=== PATIENT | female | born 1995 | race Hispanic/Latino ===

== ENCOUNTER 2019-02-19 02:10 | Inpatient (IN) | payer MEDICAID, SELFPAY ==
[2019-02-19 02:48] VITALS: BMI 24.5
[2019-02-19] MEDS: Lactated Ringers 1,000 ML 50 ML IV (02:50)
[2019-02-19 03:11] LABS: Absolute Lymphocyte Count 1.85 X10^3/ul (0.83-4.51); Absolute Neutrophil Count 5.8 X10^3/uL (2.0-7.7); Basophil# 0.02 X10^3/uL; Basophil% 0.2 % (0-1); Eosinophil# 0.08 X10^3/uL; Eosinophils% 0.9 % (0-5); Hematocrit 37.6 % (37-47); Hemoglobin 12.5 g/dl (12.0-15.0); Lymphocyte # 1.85 X10^3/ul (4.0); Lymphocyte % 21.7 % (19-41); Mean Corp Hgb Conc 33.2 g/gl (32-36); Mean Corpuscular Hgb 29.9 pg (27.0-32.0); Mean Platelet Vol. 11.7 fl (6.2-12.0); Monocyte# 0.69 X10^3/uL; Monocyte% 8.1 % (0-10); Neutrophil # 5.81 X10^3/uL (2.7-7.7); Neutrophil % 68.3 % (47-70); Platelet Count 298 K/mm3 (150-450); RBC Distribution Width CV 14.4 % (11.6-14.6); Red Blood Count 4.18 M/mm3 (4.2-5.4); White Blood Count 8.5 K/mm3 (4.4-11.0)
[2019-02-19 03:17] LABS: POSITIVE COUNT NO; POSITIVE DIFFERENTIAL NO; POSITIVE MORPHOLOGY NO
--- NOTE | 2019-02-19 04:18 | PCM.HP.OB ---
- Problem List (1) Status: Acute (2) Asthma Status: Acute (3) Language barrier Status: Acute (4) Late care Status: Acute (5) care insufficient Status: Acute History Date of Admission: 02/19/19 Final MICKY: 02/21/19 Final MICKY Source: US <20 weeks Gestational age: 39 Weeks and 5 Days History of this : This is a 23 year-old, G [2], P [1001], at 39 weeks gestational age. Presented to L&D with complaint of contractions. NO vaginal bleeding or leakage of fluid. Allergies No Known Allergies Allergy (Verified 02/19/19 02:53) Home Medications: Home Medications Ferrous Sulfate 325 mg PO DAILY 02/19/19 Smoking Status: Never smoker Alcohol: None Heart Tracin, moderate variability, accels, variable decel, Category 2 TOCO: every 2 minutes, strong History Past Pregnancies: Past Pregnancies Delivery Date Name GA/Weeks Outcome Route Weight Infant Gender Labor Length Anesthesia Delivery Location Provider FOB Labs: GBS negative 1hr GCT 124 nml O positive RPR negative Rubella Immune HBsAG negative HIV negative Zika negative GC/CT negative Urine tox screen negative Expected Delivery Method: Spontaneous Vaginal Review of Systems Constitutional: Denies: Chills, Fever, Weight Change HEENT: Denies: Head Aches, Sinus Congestion, Sinus Drainage Cardiovascular: Denies: Chest Pain, Palpitations Respiratory: Denies: Cough, Shortness of breath at rest, Sputum production Gastrointestinal: Denies: Nausea, Vomiting Genitourinary: Denies: Dysuria Neurological: Denies: Numbness, Tingling, Focal weakness Psychiatric: Denies: Anxiety, Depression, Homicidal Ideations, Suicidal Ideations Physical Exam General: Alert, Oriented x3, No apparent distress HEENT: Atraumatic, Normocephalic. Negative for: Thyromegaly Cardiovascular: Regular rate, Regular Rhythm, No murmurs Lungs: Clear to auscultation, Normal air movement, No rhonchi, No wheeze Abdomen: Bowel Sounds Present, Gravid Extremities:: No edema Neurological: Deep Tendon Reflexes 2+/4 and Symmetrical DEPARTMENT CLERK: Normal external genitalia Estimated gestational size: Appropriate for gestational size Presentation: Cephalic Cervix Dilation (cm): 7 - vertex. AROM, clear fluid Station: -1 Effacement (%): 80 Assessment/Plan All Active Problems (Acute) Asthma (Acute) Language barrier (Acute) Late care (Acute) care insufficient (Acute) This is a 23 year-old, G [1], P [0], at 39 weeks gestational age. A: Active Labor Category 1 FHT P: 1) Admission to L&D. Routine labs. 2) Using [employer] mobile services, does not speak [place] Islander 3) Planning unmedicated 4) notified of admission.
--- NOTE | 2019-02-19 04:23 | HP.PCM_ITS ---
- Problem List (1) Status: Acute (2) Asthma Status: Acute (3) Language barrier Status: Acute (4) Late care Status: Acute (5) care insufficient Status: Acute History Date of Admission: 02/19/19 Final MICKY: 02/21/19 Final MICKY Source: US <20 weeks Gestational age: 39 Weeks and 5 Days History of this : This is a 23 year-old, G [2], P [1001], at 39 weeks gestational age. Presented to L&D with complaint of contractions. NO vaginal bleeding or leakage of fluid. Allergies No Known Allergies Allergy (Verified 02/19/19 02:53) Home Medications: Home Medications Ferrous Sulfate 325 mg PO DAILY 02/19/19 Smoking Status: Never smoker Alcohol: None Heart Tracin, moderate variability, accels, variable decel, Category 2 TOCO: every 2 minutes, strong History Past Pregnancies: Past Pregnancies Delivery Date Name GA/Weeks Outcome Route Weight Infant Gender Labor Length Anesthesia Delivery Location Provider FOB Labs: GBS negative 1hr GCT 124 nml O positive RPR negative Rubella Immune HBsAG negative HIV negative Zika negative GC/CT negative Urine tox screen negative Expected Delivery Method: Spontaneous Vaginal Review of Systems Constitutional: Denies: Chills, Fever, Weight Change HEENT: Denies: Head Aches, Sinus Congestion, Sinus Drainage Cardiovascular: Denies: Chest Pain, Palpitations Respiratory: Denies: Cough, Shortness of breath at rest, Sputum production Gastrointestinal: Denies: Nausea, Vomiting Genitourinary: Denies: Dysuria Neurological: Denies: Numbness, Tingling, Focal weakness Psychiatric: Denies: Anxiety, Depression, Homicidal Ideations, Suicidal Ideations Physical Exam General: Alert, Oriented x3, No apparent distress HEENT: Atraumatic, Normocephalic. Negative for: Thyromegaly Cardiovascular: Regular rate, Regular Rhythm, No murmurs Lungs: Clear to auscultation, Normal air movement, No rhonchi, No wheeze Abdomen: Bowel Sounds Present, Gravid Extremities:: No edema Neurological: Deep Tendon Reflexes 2+/4 and Symmetrical PACKING LINE WORKER: Normal external genitalia Estimated gestational size: Appropriate for gestational size Presentation: Cephalic Cervix Dilation (cm): 7 - vertex. AROM, clear fluid Station: -1 Effacement (%): 80 Assessment/Plan All Active Problems (Acute) Asthma (Acute) Language barrier (Acute) Late care (Acute) care insufficient (Acute) This is a 23 year-old, G [1], P [0], at 39 weeks gestational age. A: Active Labor Category 1 FHT P: 1) Admission to L&D. Routine labs. 2) Using refueling ramp attendant services, does not speak Syrian 3) Planning unmedicated 4) notified of admission.
[2019-02-19] MEDS: Oxytocin 30 units/NS 500 ml 30 UNITS/500 ML IV.SOLN 334 UNITS IV (05:52)
[2019-02-19] MEDS: Oxytocin 30 units/NS 500 ml 30 UNITS/500 ML IV.SOLN 167 UNITS IV (06:22)
[2019-02-19] MEDS: Ibuprofen 600 MG Tablet PO (06:49)
--- NOTE | 2019-02-19 06:57 | PCM.OPRPT ---
Problem List (1) Status: Acute (2) Asthma Status: Acute (3) Language barrier Status: Acute (4) Late care Status: Acute (5) care insufficient Status: Acute (6) Vaginal delivery Status: Acute (7) First degree perineal laceration Status: Acute Vaginal Delivery Maternal Presentation: Active Labor Amniotic Membrane Rupture Type: Artificial Amniotic Fluid Description: Clear Date of Procedure: 02/19/19 Pre-Operative Diagnosis: Active Labor Post-Operative Diagnosis: Surgery/ Procedure Performed: Spontaneous Vaginal Delivery Type of Anesthesia: Local with 1% lidocaine Description of Procedure: Progressed to complete with urge to push. of viable female infant over 1st degree perineal laceration. head delivered and body forth coming. CAN x1 tight, able to deliver through. Infant placed on maternal abdomen, strong cry, mouth and nares suctioned for secretions. APGARS 8,9. Pitocin started for active 3rd stage management. Placenta delivered with maternal effort intact 3 vessel cord. Perineum inspected and revealed 1st degree perineal laceration and periurethral laceration. Repaired with 3.0 vicryl with Lidocaine. Fundus firm, hemostasis achieved. Mom and baby stable, bonding well. notified of delivery. Delivery assisted with rectification printer services. Presentation: Vertex Placental Delivery Description: Spontaneous Placenta Disposition: [facility] Cord Vessel Description: 3 Vessels Cord Entanglement: Around neck x 1, tight Estimated Blood Loss: 100 A gender: Female (1 minute): 8 (5 minute): 9 Episiotomy Description: None Laceration: Periurethral Extnsion/lac, Perineal Extension/lac, 1st degree Medications given after delivery: IV Pitocin
--- NOTE | 2019-02-19 07:07 | OP.PCM_ITS ---
Problem List (1) Status: Acute (2) Asthma Status: Acute (3) Language barrier Status: Acute (4) Late care Status: Acute (5) care insufficient Status: Acute (6) Vaginal delivery Status: Acute (7) First degree perineal laceration Status: Acute Vaginal Delivery Maternal Presentation: Active Labor Amniotic Membrane Rupture Type: Artificial Amniotic Fluid Description: Clear Date of Procedure: 02/19/19 Pre-Operative Diagnosis: Active Labor Post-Operative Diagnosis: Surgery/ Procedure Performed: Spontaneous Vaginal Delivery Type of Anesthesia: Local with 1% lidocaine Description of Procedure: Progressed to complete with urge to push. of viable female infant over 1st degree perineal laceration. head delivered and body forth coming. CAN x1 tight, able to deliver through. Infant placed on maternal abdomen, strong cry, mouth and nares suctioned for secretions. APGARS 8,9. Pitocin started for active 3rd stage management. Placenta delivered with maternal effort intact 3 vessel cord. Perineum inspected and revealed 1st degree perineal laceration and periurethral laceration. Repaired with 3.0 vicryl with Lidocaine. Fundus firm, hemostasis achieved. Mom and baby stable, bonding well. notified of delivery. Delivery assisted with shovel oiler services. Presentation: Vertex Placental Delivery Description: Spontaneous Placenta Disposition: [facility] Cord Vessel Description: 3 Vessels Cord Entanglement: Around neck x 1, tight Estimated Blood Loss: 100 A gender: Female (1 minute): 8 (5 minute): 9 Episiotomy Description: None Laceration: Periurethral Extnsion/lac, Perineal Extension/lac, 1st degree Medications given after delivery: IV Pitocin
[2019-02-19] MEDS: 0.9% Saline Lock 10 ML Syringe IV (07:45)
[2019-02-19 11:50] VITALS: BP 101/40; PULSE 75; RESP 12; TEMP 37.3
[2019-02-19 16:00] VITALS: BP 91/40; PULSE 73; RESP 14; TEMP 36.9
[2019-02-19 20:15] VITALS: BP 102/53; PULSE 70; RESP 18; TEMP 37.1
[2019-02-20 00:20] VITALS: BP 92/44; PULSE 65; RESP 18; TEMP 36.4
[2019-02-20 05:25] VITALS: BP 97/49; PULSE 68; RESP 16; TEMP 36.6
[2019-02-20 07:54] VITALS: BP 91/46; PULSE 74; RESP 16; TEMP 36.8
--- NOTE | 2019-02-20 08:09 | PCM.PN.OB ---
Patient Problems: Active and Suspected Problems (Acute) Asthma (Acute) Language barrier (Acute) Late care (Acute) care insufficient (Acute) Vaginal delivery (Acute) First degree perineal laceration (Acute) Subjective: pt seen at bedside, doing well. pt reports good pain control. Voiding without difficulty. Lochia mild. Breast feeding. pt requesting dc home today. - Physical Exam General: Alert, Oriented x3 Abdomen: Soft, Non Tender, - - fundus firm Vital Signs Temp Pulse Resp BP 98.3 F 74 16 91/46 L 02/20/19 07:54 02/20/19 07:54 02/20/19 07:54 02/20/19 07:54 Oxygen Delivery Method Room Air Weight: 61 kg Body Mass Index (BMI) 24.5 Intake and Output for Last 24 Hours 02/18/19 02/19/19 02/20/19 23:59 23:59 23:59 Intake Total 867 / 867 Output Total 1100 / 1100 Balance -233 / -233 Medical Necessity - Tobacco Use Smoking Status: Never smoker Assessment/Plan All Active Problems (Acute) Asthma (Acute) Language barrier (Acute) Late care (Acute) care insufficient (Acute) Vaginal delivery (Acute) First degree perineal laceration (Acute) PPD#1, doing well routine care dc home
--- NOTE | 2019-02-20 08:12 | DCINST_ITS ---
Discharge Diet: No Restrictions Discharge Activity: Return to Normal Activity, May not drive while taking narcotic pain medications., May Shower May resume sexual activity in: 4-6 weeks Additional Activity Instructions:: Nothing in the vagina for 4-6 weeks. You may return to work/school in 6 weeks. Call your doctor if your incision/area has: Continuous Slow Oozing, Sudden Increased Bleeding, Increased Pain/ Swelling, Increased Redness, Foul Smelling Discharge Additional Instructions: If you experience any of the following, contact your healthcare provider. * Bleeding that soaks a pad every hour for 2 hours * Fever 100.4 or higher * Unrelieved incision or abdominal pain * Swelling, redness, discharge or bleeding from your incision or episiotomy site * Your incision begins to separate * Problems urinating (including inability to urinate or burning while urinating). * Visual changes * Severe headache * Flu-like symptoms * Pain or redness in one of both of your breasts * Pain, warmth, tenderness or swelling in your legs, especially the calf area * Frequent nausea and vomiting * Symptoms of depression or anxiety If you experience any of the following, call 911 or go to the nearest Emergency Room. * Chest pain * Problems breathing * Seizure activity * Partial or complete paralysis of a body part, slurred speech, weakness or drooping of the face, or a sudden inability to walk or hold your balance Allergies/Adverse Reactions: Allergies No Known Allergies Allergy (Verified 02/19/19 02:53) Medications to take at Discharge Ferrous Sulfate 325 mg PO DAILY 02/19/19 Ibuprofen [Motrin] 600 mg PO Q6H PRN PRN #60 tablet 02/20/19 The following prescriptions were given: Ibuprofen [Motrin] 600 mg PO Q6H PRN PRN #60 tablet PRN Reason: Mild Pain (1-310) When: Call to make an appointment with your doctor in 6 weeks. If you had elevated Blood Pressure or 4th degree laceration you will need to be seen in 2 weeks. Test Results: Test results from this visit will be discussed in further detail at your follow- up appointment, if applicable.
[2019-02-20 15:21] VITALS: BP 106/60; PULSE 75; RESP 16; TEMP 36.6
--- NOTE | 2019-02-20 16:48 | CASEMGMT ---
Social Work Labor and Delivery Consult received and completed with mother of baby today. Full assessment to follow. Resources provided for home going later today. -GERMÁN Chapa, AUTOMOBILE LEASING SUPERVISOR
[2019-02-20 20:10] VITALS: BP 103/54; PULSE 69; RESP 17; TEMP 37.4; O2SAT 95
[2019-02-21 02:02] VITALS: BP 102/54; PULSE 70; RESP 16; TEMP 36.3; O2SAT 95
[2019-02-21 08:28] VITALS: BP 86/46; PULSE 75; RESP 16; TEMP 36.1
--- NOTE | 2019-02-21 08:35 | NURSING ---
Used Turkmen I pad paraprofessional interpreter for discharge teaching and for pt asking questions, used twice paraprofessional interpreter [id number], and [id number].
--- NOTE | 2019-02-21 09:03 | PCM.PROGNOTE ---
Patient Problems: Active and Suspected Problems (Acute) Asthma (Acute) Language barrier (Acute) Late care (Acute) care insufficient (Acute) Vaginal delivery (Acute) First degree perineal laceration (Acute) Subjective: Doing well per patient and nursing staff. Ambulating and taking PO without difficulty. Voiding and passing flatus. Normal lochia. Pain controlled. . - Physical Exam General: Alert, Oriented x3, Cooperative HEENT: Atraumatic, Normocephalic Neck: Supple Lungs: Clear to auscultation, Normal air movement, No rhonchi, No wheeze Cardiovascular: Regular rate, Regular Rhythm, No murmurs Abdomen: Bowel Sounds Present, Soft, - - fundus firm Extremities: No edema Psych/Mental Status: Normal Affect, Appropriate Vital Signs Temp Pulse Resp BP Pulse Ox 97.0 F L 75 16 86/46 L 95 02/21/19 08:28 02/21/19 08:28 02/21/19 08:28 02/21/19 08:28 02/21/19 02:02 Oxygen Delivery Method Room Air Weight: 134 lb 7.712 oz Body Mass Index (BMI) 24.5 Intake and Output for Last 24 Hours 02/19/19 02/20/19 02/21/19 23:59 23:59 23:59 Intake Total 867 / 867 Output Total 1100 / 1100 Balance -233 / -233 Medical Necessity - Tobacco Use Smoking Status: Never smoker Assessment/Plan All Active Problems (Acute) Asthma (Acute) Language barrier (Acute) Late care (Acute) care insufficient (Acute) Vaginal delivery (Acute) First degree perineal laceration (Acute) A:PPD #2 P:1) Routine and instructions given 2) Continue iron supplementation 3) Follow up in 2 weeks and 6 weeks.
[2019-02-21 13:02] VITALS: BP 106/59; PULSE 75; RESP 16; TEMP 36.3
--- NOTE | 2019-02-21 13:18 | NURSING ---
Soft Sugar Cutter Cordelia Randallida id # [id number] Fish Cleaner Machine Tender [facility] discussed with pt, pt previously had nursed her other child for 2 years. Pt is self pay so the haka shown and discussed how to purchase on [employer] and cost. Discussed frequency of feeds 8-12 feeds a day and feed during the night and not to skip night time feeds. Engorgment discussed and how to provide comfort. Ordered pt lunch through pediatric dental assistant and also discussed all teaching material printed off for pt and father of baby on selfcare and baby care. And also reviewed again when to call the doctor and when follow up appointments for herself and baby needed to be made. Education provided from [employer] in Arabic. For mother= After a Vag , After giving Changing expectations of parents, Breast care after and understanding depression. For baby= When to call healthcare provider, safe sleep, umbilical cord care, safety tips in bathing baby, taking rectal temp.
== END 2019-02-21 13:40 | disposition home or self-care (01) | DRG 807 ==
PROVIDERS: Admitting Provider Obstetrics & Gynecology; Referring Provider Advanced Practice Midwife; Visit Provider Obstetrics & Gynecology
DX: O70.0 First degree perineal laceration during delivery (principal); Z37.0 Single live birth; O71.82 Other specified trauma to perineum and vulva; O69.81X0 Labor and delivery complicated by cord around neck, without compression, not applicable or unspecified; Z3A.39 39 weeks gestation of pregnancy
CPT/HCPCS: 59050; 85025; 86850; 86900; 99218; J7120; A4216; G0378

== ENCOUNTER 2023-11-09 17:31 | Emergency (ER) | payer BC, SELFPAY ==
[2023-11-09 17:35] VITALS: BP 107/70; PULSE 67; RESP 16; TEMP 36.3; O2SAT 99; BMI 28.9
--- NOTE | 2023-11-09 20:06 | EKG12_ITS ---
Test Reason : DIZZY Blood Pressure : / mmHG Vent. Rate : 066 BPM Atrial Rate : 066 BPM P-R Int : 166 ms QRS Dur : 086 ms QT Int : 398 ms P-R-T Axes : 053 039 020 degrees QTc Int : 417 ms Normal sinus rhythm with sinus arrhythmia Normal ECG Confirmed by JOLEEN PIERRE, GEOFF ([id number]), medical transcription editor WILMER GRANADOS ([id number]) on 11/11/2023 9:48:47 AM Referred By: Confirmed By:GEOFF GOODRICH MD
--- NOTE | 2023-11-09 20:16 | EDS_ITS ---
HPI History of Present Illness Chief Complaint: Dizziness Informant: patient Onset/Context/Timing Onset: Today Narrative Narrative: Patient presents secondary to dizziness with nausea and vomiting. History is obtained through creative recruiter. Patient states she felt okay when she got up this morning. When she was at work this evening she got dizzy and nauseated and vomited. She denies chest pain or palpitations. She no longer feels dizzy or nauseated. She does report some mild pain to the right side of her neck and was having some low back pain earlier that has subsided. She denies possibility of and has an IUD. She denies urinary symptoms. PFSH PFS Medical History no medical history no medical history Home Medications ferrous sulfate 325 mg (65 mg iron) tablet 325 mg PO DAILY anemia 02/19/19 [History Last Taken 02/18/19] ibuprofen 600 mg tablet 600 mg PO Q6H PRN PRN Mild Pain (1-310) ##60 02/20/19 [Rx Last Taken Unknown] sulfamethoxazole 800 mg-trimethoprim 160 mg tablet (Bactrim DS) 1 tab PO BID #6 tabs 11/09/23 [Rx Last Taken Unknown] Allergy/AdvReac Type Severity Reaction Status Date / Time No Known Allergies Allergy Verified 02/19/19 02:53 Surgical History no surgical history no surgical history Social History Smoking Status: Never smoker ROS ROS ED Constitutional Constitutional ED: Denies chills or fever(s) ENT ENT ED: Denies sore throat Cardiovascular Cardiovascular: Denies chest pain or palpitations Respiratory/Chest Respiratory/Chest: Denies cough or dyspnea Gastrointestinal Gastrointestinal: Reports nausea and vomiting Musculoskeletal Musculoskeletal: Reports back pain and neck pain Neurologic Neurologic: Reports weakness; Denies headache(s) Psychiatric Psychiatric: Denies anxiety or depression Allergic/Immunologic Allergic/Immunologic ED: Denies mouth swelling EXAM Physical Exam Const Vital Signs: 11/09/23 17:35 11/09/23 21:00 Temperature 97.4 F L Temperature Source Temporal Pulse Rate 67 65 Respiratory Rate 16 14 Blood Pressure 107/70 107/58 L Blood Pressure Mean 82 74 Pulse Ox 99 99 Oxygen Delivery Method Room Air Room Air Positive well nourished and well developed General Appearance ED: well developed HEENT Reports moist mucous membranes Eyes EOMs intact bilaterally Chest Wall inspection of chest normal and palpation of chest normal Resp normal respiratory effort and clear to auscultation bilaterally Cardio regular rate and regular rhythm GI non-tender Auscultation: normoactive bowel sounds Palpation: soft Extremity normal to inspection Neuro oriented x3 and no sensory deficits noted Motor Exam: strength 5/5 throughout Psych mental status grossly normal Skin no rashes or lesions noted MDM MDM MDM Narrative Medical decision making narrative: Patient placed on cardiac rn. EKG obtained to evaluate for cardiac arrhythmia/ischemia. IV line initiated. Labwork obtained to evaluate for leukocytosis, anemia, and electrolyte derangement. Urinalysis obtained to evaluate for infection/hematuria. History & Record Review Discussion w/independent historian: Patient Lab Data Attestation: I reviewed the patient's lab results. Labs: Laboratory Results - last 24 hr 11/09/23 11/09/23 20:19 20:36 WBC 11.1 H RBC 4.76 Hgb 14.3 Hct 43.6 MCV 91.6 MCH 30.0 MCHC 32.8 RDW Std Deviation 41.5 RDW Coeff of Jhony 12.5 Plt Count 343 MPV 10.3 Immature Gran % (Auto) 0.500 Neut % (Auto) 68.2 Lymph % (Auto) 23.9 Darke % (Auto) 5.9 Eos % (Auto) 1.0 Baso % (Auto) 0.5 Absolute Neuts (auto) 7.6 Absolute Lymphs (auto) 2.66 Nucleated RBC % 0 Sodium 137 Potassium 3.4 L Chloride 107 Carbon Dioxide 23.0 Anion Gap 7 BUN 13 Creatinine 0.65 Estim Creat Clear Calc 111.86 Est GFR (MDRD) Af Amer 142 Est GFR (MDRD) Non-Af 117 BUN/Creatinine Ratio 20.0 Glucose 80 Calcium 9.5 Serum , Qual NEGATIVE Urine Color Yellow Urine Clarity Sl. Cloudy Urine pH 5.0 Ur Specific [place] 1.025 Urine Protein 30 H Urine Glucose (UA) Normal Urine Ketones 150 A* Urine Occult Blood 25 H Urine Nitrite Negative Urine Bilirubin Negative Urine Urobilinogen Normal Ur Leukocyte Esterase 100 H Urine RBC 0-5 SEEN Urine WBC 5-10 SEEN Ur Squamous Epith Cells 0-5 SEEN Urine Bacteria 2+ Urine Mucus 0 SEEN EKG Initial EKG: Attestation: I personally reviewed and interpreted this EKG as follows: Interpretation: Sinus Rhythm (Sinus at 66 with no acute ischemia.) Treatment and Re-Evaluation :: CBC reveals a white count of 11.1 with normal differential. Hemoglobin 14.3. Chemistry studies reveal borderline low potassium at 3.4. test is negative. Urinalysis does reveal 150 ketones as well as evidence of infection with 5-10 white cells and 2+ bacteria. EKG is sinus rhythm at 66 bpm with no acute ischemia. On repeat evaluation patient resting comfortably. She has been given a liter of IV fluids. She denies any dizziness or nausea at this time. Test results are discussed with her with the aid of rocket propellant plant supervisor service. I will write her a prescription for Bactrim to treat her UTI. She is to increase fluids. She be given a work note for tomorrow. Discharge Plan Triage Chief Complaint: Dizziness Other Complaint: Nausea/Vomiting ED Provider: Kell Bob Dx/Rx/DC Orders Clinical Impression: UTI (urinary tract infection), Dizziness, Nausea, Dehydration Instructions: ED Dehydration (Adult), ED Cystitis Female Adult Prescriptions: New sulfamethoxazole-trimethoprim [Bactrim DS] 800-160 mg tablet 1 tab PO BID Qty: 6 0RF No Action ferrous sulfate 325 MG tablet 325 mg PO DAILY Patient Comments: TAKE 1 TABLET BY MOUTH EVERY DAY WITH BREAKFAST ibuprofen 600 MG tablet 600 mg PO Q6H PRN PRN (Reason: Mild Pain (-12/31)) Qty: 60 0RF Stand Alone Forms: ED Work / School Excuse Primary Care Provider: Care Physician,No Primary Referrals: Nataly Harper MD [Med Staff - Company Tanker Truck Driver] - 1-2 Weeks Care Physician,No Primary [Primary Care Provider] - Print Language: French Disposition Disposition: Home, Self Care Capacity Legal Speech Coach Reflex Medical hold order details:: IF a medical hold is selected below, a suggested order for a MEDICAL HOLD will reflex upon signing the document. Next of kin: [place] law dictates a PRIORITY LIST for identifying legal decision-maker/legal next of kin in the following order (LNOK): 1st: The patient?s legal guardian, if any 2nd: The patient's spouse (if status is questionable, consult Risk Management) 3rd: The patient?s adult child(oly) (majority, if multiple children) 4th: The patient?s parents 5th: The patient?s adult siblings (majority, if multiple children siblings)
[2023-11-09] MEDS: 0.9% Normal Saline (1000mL) 1,000 ML 1000 ML IV (20:21)
[2023-11-09] MEDS: Ketorolac 15 MG/ML Vial IV (20:21)
[2023-11-09] MEDS: Ondansetron 4 MG/2 ML Vial IV (20:21)
[2023-11-09 20:35] LABS: Absolute Lymphocyte Count 2.66 X10^3/uL (0.83-4.51); Absolute Neutrophil Count 7.6 X10^3/uL (2.0-7.7); Basophil# 0.05 X10^3/uL; Basophil% 0.5 % (0-1); Eosinophil# 0.11 X10^3/uL; Hematocrit 43.6 % (37-47); Hemoglobin 14.3 g/dL (12.0-15.0); Lymphocyte # 2.66 X10^3/ul (0.83-4.51); Lymphocyte % 23.9 % (19-41); Mean Corp Hgb Conc 32.8 g/dL (32-36); Mean Corpuscular Volume 91.6 fL (81-99); Mean Platelet Vol. 10.3 fl (6.2-12.0); Monocyte# 0.66 X10^3/uL; Monocyte% 5.9 % (0-10); NRBC Flagged by Analyzer 0 % (0-5); Neutrophil # 7.57 X10^3/uL (2.7-7.7); Neutrophil % 68.2 % (47-70); Platelet Count 343 K/mm3 (150-450); RBC Distribution Width CV 12.5 % (11.6-14.6); RBC Distribution Width SD 41.5 fl (35.1-43.9); Red Blood Count 4.76 M/mm3 (4.2-5.4); White Blood Count 11.1 K/mm3 (4.4-11.0)
[2023-11-09 20:42] LABS: Mucous, Urine 0 SEEN /hpf (<or=2+)
[2023-11-09 20:43] LABS: Internal QC Validated? YES +Cl - CLEAR BKGD; Pregnancy, Serum, hCG Quali. NEGATIVE Negative
[2023-11-09 20:50] LABS: Anion Gap 7 (5-15); BUN 13 mg/dL (7-18); Calcium,Total 9.5 mg/dL (8.5-10.1); Chloride 107 mmol/L (98-107); Creatinine, Serum 0.65 mg/dL (0.55-1.02); EST Glomerular Filtration Rate 117 mL/min (>60); Est Glom Filt Rate - Afr Amer 142 mL/min (>60); Estimated Creatinine Clearance 111.86 ml/min; Glucose 80 mg/dL (74-106); Potassium 3.4 mmol/L (3.5-5.1); Sodium Level 137 mmol/L (136-145)
[2023-11-09 20:51] LABS: Color, Urine Yellow (Yellow); Glucose, Dipstick Normal (Normal); Leukocyte Esterase-Dipstick 100 /ul (Negative); Nitrite-Dipstick Negative (Negative); Occult Blood-Urine 25 /ul (Negative); Protein-Dipstick 30 mg/dl (Negative); Specific Gravity, Urine 1.025 (1.002-1.030); Urine Bilirubin Dipstick Negative (Negative); Urine Clarity Sl. Cloudy (Clear); Urine Urobilinogen Normal (Normal)
[2023-11-09 20:54] LABS: Ketone-Dipstick 150 mg/dl (Negative)
[2023-11-09 21:00] VITALS: BP 107/58; PULSE 65; RESP 14; O2SAT 99
[2023-11-09 21:01] LABS: Bacteria 2+ /hpf (None Seen); Red Blood Cells-Urine 0-5 SEEN /hpf (0-5); Squamous Epithelial Cells - UA 0-5 SEEN /hpf (5-10)
[2023-11-09 21:02] LABS: White Blood Cells 5-10 SEEN /hpf (0-5)
[2023-11-09 22:55] VITALS: BP 104/57; PULSE 68; RESP 19; O2SAT 97
[2023-11-09] MEDS: Smz/Tmp Ds Tablet 1 TABLET PO (23:01)
== END 2023-11-09 23:03 | disposition home or self-care (01) ==
PROVIDERS: Emergency Provider Emergency Medicine; PCP Nurse Practitioner Family; Visit Provider Emergency Medicine
DX: N39.0 Urinary tract infection, site not specified (principal); R11.2 Nausea with vomiting, unspecified; R42 Dizziness and giddiness; E86.0 Dehydration; Z97.5 Presence of (intrauterine) contraceptive device
CPT/HCPCS: 80048; 81001; 84703; 85025; 93005; 96361; 96374; 96375; 99284; J7030; A4216; J2405

== ENCOUNTER 2023-12-19 10:10 | Emergency (ER) | payer BC, SELFPAY ==
[2023-12-19 10:12] VITALS: BP 123/68; PULSE 64; RESP 16; TEMP 36.5; O2SAT 99
[2023-12-19 10:48] VITALS: BMI 23.7
--- NOTE | 2023-12-19 10:48 | EDS_ITS ---
HPI HPI - Female History of Present Illness Chief Complaint: Nausea/Vomiting Informant: patient and spouse/S.O. Associated Symptoms Associated Symptoms: Positive for Dysuria Narrative Narrative: 28-year-old female speaks some Fijian. Currently the gentleman she has with her does not speak much Fijian. She speaks some. We are unable to get through the associate field service engineer phone. Patient states she is having some dysuria and intermittent nausea vomiting. Currently has no abdominal pain. No fever. No diarrhea. No prior abdominal surgeries. No significant past medical histo ry. Currently is on no medications. Prior similar symptoms: Yes PFSH PFSH Medical History no medical history no medical history Home Medications NK 12/19/23 [History Last Taken Unknown] Allergy/AdvReac Type Severity Reaction Status Date / Time No Known Allergies Allergy Verified 12/19/23 10:46 Surgical History no surgical history no surgical history Social History Smoking Status: Never smoker ROS ROS ED ROS Narrative Dysuria. Nausea vomiting. Review of Systems ROS Unobtainable: Denies due to encephalopathy Constitutional Constitutional ED: Denies chills or fever(s) Eyes Eyes: Denies blurry vision ENT ENT ED: Denies ear pain Cardiovascular Cardiovascular: Denies chest pain or palpitations Respiratory/Chest Respiratory/Chest: Denies cough or dyspnea Gastrointestinal Gastrointestinal: Reports nausea and vomiting; Denies abdominal pain, constipation, diarrhea or melena Genitourinary Genitourinary ED: Reports dysuria Musculoskeletal Musculoskeletal: Denies arthralgias or myalgias Integumentary Denies abscess Neurologic Neurologic: Denies headache(s) Psychiatric Psychiatric: Denies anxiety Endocrine Endocrinology: Denies heat intolerance Hematologic/Lymphatic Hematologic/Lymphatic: Denies easy bleeding, easy bruising or lymphadenopathy Allergic/Immunologic Allergic/Immunologic ED: Denies mouth swelling, tongue swelling or urticaria EXAM Physical Exam Narrative Exam Narrative: Well-appearing 28-year-old female. Vital signs stable afebrile. HEENT exam normal. Moist mucous membranes. Neck nontender. Lungs clear to auscultation bilaterally. Heart regular rhythm no murmur. Abdomen is soft and nontender. Nondistended. Normal bowel sounds. No localizing tenderness. No distention. No peritoneal signs. Back nontender. Moving all 4 extremities. Nontender no edema. She is awake and alert. Answering questions and following commands. Const Vital Signs: 12/19/23 10:12 Temperature 97.7 F L Temperature Source Temporal Pulse Rate 64 Respiratory Rate 16 Blood Pressure 123/68 H Blood Pressure Mean 86 Pulse Ox 99 Oxygen Delivery Method Room Air Positive well nourished and well developed; Negative for obese, cachectic, contractures or unkempt General Appearance ED: well developed and NAD; Negative for unkempt, cachectic, contractures, odor of alcohol detected or pallor Nutritional Appearance: Negative for cachectic or obese HEENT Reports moist mucous membranes Negative for trauma or tenderness Eyes PERRL and EOMs intact bilaterally General Eye ED: Negative for pale conjunctiva or scleral icterus Neck no lymphadenopathy, supple and no JVD General: Negative for other Thyroid: Negative for tender Lymph Lymphatic: Negative for other Chest Wall inspection of chest normal and palpation of chest normal Chest: Negative for other Resp normal respiratory effort and clear to auscultation bilaterally Effort and Inspection: Negative for pain with movement Auscultation: Negative for rales, rhonchi, wheezes or diminished lung sounds Cardio regular rate, regular rhythm, S1 normal heart sound, no murmurs and no JVD Rate: Negative for bradycardia or tachycardic Rhythm: Negative for abnormal rhythm GI normal to inspection, nondistended, normoactive bowel sounds, soft to palpation, non-tender, non-distended and no masses Auscultation: normoactive bowel sounds Palpation: Negative for tender, guarding, hepatomegaly, splenomegaly or mass Back/Spine no CVA tenderness General Back: Negative for CVA tenderness Cervical Spine: Negative for cervical spine tenderness Thoracic Spine / Upper Back: Negative for thoracic spinal tenderness Lumbar Spine / Lower Back: Negative for lumbar spinal tenderness Sacrum: Negative for other Extremity normal to inspection and full ROM General Extremety ED: Negative for edema or tenderness General Extremity: Negative for edema Neuro oriented x3 and CN's II-XII intact bilaterally Sensorium / Orientation: alert, oriented to person, oriented to place and oriented to time; Negative for confused, lethargic or stuporous Motor Exam: strength 5/5 throughout Psych mental status grossly normal Appearance: Negative for unkempt Attitude: No agitated Speech: No other Mood & Affect: Negative for depressed, anxious or tearful Skin no rashes or lesions noted and no wounds General Skin Exam: Negative for jaundice or pallor Rashes: No rashes noted Trauma: Negative for other MDM MDM MDM Narrative Medical decision making narrative: 28-year-old female with intermittent nausea and vomiting and dysuria. Screening labs and UA will be obtained. At this time her abdomen is completely nontender. Nondistended. I do not think she needs any imaging. This may be a UTI. Check a test. She was offered but did not want anything for nausea. She is having no pain. Repeat exam patient is doing well at 1218. She and I discussed all of her test results. Repeat abdominal exam is completely benign. Nontender. Nondistended. Soft. She and her significant other are comfortable and discharged home. Outpatient follow-up as needed. History & Record Review Discussion w/independent historian: Patient Additional record(s) reviewed:: No prior records Lab Data Attestation: I reviewed the patient's lab results. Lab results narrative: CBC shows white count of 7.5. H&H is 13 and 40. Platelets 317. Electrolytes show a gap of 3. Normal BUN of 8 creatinine 0.6. Liver enzymes are normal. Serum test is negative. Urinalysis is normal. No white or red cells. No nitrites or bacteria. Labs: Laboratory Results - last 24 hr 12/19/23 12/19/23 10:58 11:05 WBC 7.5 RBC 4.43 Hgb 13.4 Hct 40.4 MCV 91.2 MCH 30.2 MCHC 33.2 RDW Std Deviation 40.8 RDW Coeff of Jhony 12.2 Plt Count 317 MPV 10.2 Immature Gran % (Auto) 0.400 Neut % (Auto) 62.3 Lymph % (Auto) 28.2 [place] % (Auto) 6.1 Eos % (Auto) 2.5 Baso % (Auto) 0.5 Absolute Neuts (auto) 4.7 Absolute Lymphs (auto) 2.12 Nucleated RBC % 0 Sodium 137 Potassium 3.9 Chloride 109 H Carbon Dioxide 25.0 Anion Gap 3 L BUN 8 Creatinine 0.65 Estim Creat Clear Calc 108.49 Est GFR (MDRD) Af Amer 141 Est GFR (MDRD) Non-Af 116 BUN/Creatinine Ratio 12.3 Glucose 98 Calcium 9.4 Total Bilirubin 1.30 H AST 17 ALT 23 Alkaline Phosphatase 84 Total Protein 7.3 Albumin 3.7 Globulin 3.6 Albumin/Globulin Ratio 1.0 Serum , Qual NEGATIVE Urine Color Yellow Urine Clarity Sl. Cloudy Urine pH 6.5 Ur Specific [place] 1.010 Urine Protein Negative Urine Glucose (UA) Normal Urine Ketones Negative Urine Occult Blood Negative Urine Nitrite Negative Urine Bilirubin Negative Urine Urobilinogen Normal Ur Leukocyte Esterase 25 H Urine RBC 0 SEEN Urine WBC 0-5 SEEN Ur Squamous Epith Cells 0-5 SEEN Urine Bacteria 0 SEEN Urine Mucus 0 SEEN Discharge Plan Triage Chief Complaint: Nausea/Vomiting ED Provider: John Paul Cristobal Dx/Rx/DC Orders Clinical Impression: Nausea & vomiting, Abdominal pain Instructions: Abdominal Pain Prescriptions: No Action NK Primary Care Provider: Christine Jimenez Referrals: NOT,DEFINED [Non-Staff] - Christine Jimenez, TELEVISION ACTOR-[employer] [Primary Care Provider] - 3-5 Days if not improving Activity Restrictions/Additional Instructions: Plenty of fluids and rest. Follow-up with your primary care provider if not improving. Return if worse. All your labs today were normal. Your urine was clean with no signs of infection. Print Language: [place] Disposition Disposition: Home, Self Care
[2023-12-19 11:04] LABS: Absolute Lymphocyte Count 2.12 X10^3/uL (0.83-4.51); Absolute Neutrophil Count 4.7 X10^3/uL (2.0-7.7); Basophil# 0.04 X10^3/uL; Basophil% 0.5 % (0-1); Eosinophil# 0.19 X10^3/uL; Eosinophils% 2.5 % (0-5); Hematocrit 40.4 % (37-47); Hemoglobin 13.4 g/dL (12.0-15.0); Lymphocyte # 2.12 X10^3/ul (0.83-4.51); Lymphocyte % 28.2 % (19-41); Mean Corp Hgb Conc 33.2 g/dL (32-36); Mean Corpuscular Hgb 30.2 pg (27.0-32.0); Mean Corpuscular Volume 91.2 fL (81-99); Mean Platelet Vol. 10.2 fl (6.2-12.0); Monocyte# 0.46 X10^3/uL; Monocyte% 6.1 % (0-10); NRBC Flagged by Analyzer 0 % (0-5); Neutrophil # 4.68 X10^3/uL (2.7-7.7); Neutrophil % 62.3 % (47-70); Platelet Count 317 K/mm3 (150-450); RBC Distribution Width CV 12.2 % (11.6-14.6); RBC Distribution Width SD 40.8 fl (35.1-43.9); Red Blood Count 4.43 M/mm3 (4.2-5.4); White Blood Count 7.5 K/mm3 (4.4-11.0)
[2023-12-19 11:08] LABS: Bacteria 0 SEEN /hpf (None Seen); Mucous, Urine 0 SEEN /hpf (<or=2+); Red Blood Cells-Urine 0 SEEN /hpf (0-5)
[2023-12-19 11:12] LABS: Color, Urine Yellow (Yellow); Glucose, Dipstick Normal (Normal); Ketone-Dipstick Negative (Negative); Leukocyte Esterase-Dipstick 25 /ul (Negative); Nitrite-Dipstick Negative (Negative); Occult Blood-Urine Negative /ul (Negative); Protein-Dipstick Negative (Negative); Urine Bilirubin Dipstick Negative (Negative); Urine Clarity Sl. Cloudy (Clear); Urine Urobilinogen Normal (Normal); Urine pH 6.5 (5.0 - 8.0)
[2023-12-19 11:20] LABS: Squamous Epithelial Cells - UA 0-5 SEEN /hpf (5-10); White Blood Cells 0-5 SEEN /hpf (0-5)
[2023-12-19 11:20] LABS: Internal QC Validated? YES +Cl - CLEAR BKGD; Pregnancy, Serum, hCG Quali. NEGATIVE Negative
[2023-12-19 11:21] LABS: Record Kit Lot#, Serum Preg. 718086
[2023-12-19 11:24] LABS: AST(SGOT) 17 U/L (15-37); Alanine Aminotransfer ALT/SGPT 23 U/L (13-56); Albumin, Serum 3.7 g/dL (3.2-5.0); Alkaline Phosphatase 84 U/L (45-117); Anion Gap 3 (5-15); BUN 8 mg/dL (7-18); BUN/Creat Ratio 12.3 RATIO (10-20); Calcium,Total 9.4 mg/dL (8.5-10.1); Chloride 109 mmol/L (98-107); Creatinine, Serum 0.65 mg/dL (0.55-1.02); EST Glomerular Filtration Rate 116 mL/min (>60); Est Glom Filt Rate - Afr Amer 141 mL/min (>60); Estimated Creatinine Clearance 108.49 ml/min; Globulin 3.6 g/dL (2.2-4.2); Glucose 98 mg/dL (74-106); Potassium 3.9 mmol/L (3.5-5.1); Protein, Total 7.3 g/dL (6.4-8.2); Sodium Level 137 mmol/L (136-145)
[2023-12-19 12:27] VITALS: BP 97/55; PULSE 53; RESP 16; TEMP 36.5; O2SAT 99
== END 2023-12-19 12:30 | disposition home or self-care (01) ==
PROVIDERS: Emergency Provider Emergency Medicine; PCP Nurse Practitioner Family; Visit Provider Emergency Medicine
DX: R11.2 Nausea with vomiting, unspecified (principal); R10.9 Unspecified abdominal pain; R30.0 Dysuria
CPT/HCPCS: 80053; 81001; 84703; 85025; 99283; A4216